=== PATIENT | male | born 1965 | race African-American/Black ===

== ENCOUNTER → 2020-10-16 | Outpatient (CLI) | payer OTHER | LOC: LAB 13:55 | PROVIDERS: ATTEND Family Medicine | DX: Z20.2 Contact with and (suspected) exposure to infections with a predominantly sexual mode of transmission (principal) | CPT/HCPCS: 86592; 86703; 86803; 87491; 87591 ==

== ENCOUNTER 2021-01-20 13:27 | Emergency (ER) | payer OTHER ==
[~2021-01-20] VITALS: Ht 180.3 cm; Wt 106.8 kg
[2021-01-20 13:50] VITALS: BP 154/90
[2021-01-20] MEDS ORDERED: ONDANSETRON ODT 4 MG TAB.RAPDIS. PO ONE (14:00)
[2021-01-20] MEDS ORDERED: predniSONE 20 MG TABLET PO ONE (14:00)
[2021-01-20] MEDS ORDERED: BENZONATATE 100 MG CAPSULE. PO ONE (14:00)
[2021-01-20] MEDS ORDERED: IPRATRPIUM/ALBUTEROL 0.5/2.5MG 3 ML NEBU. NEB ONE (14:00)
--- NOTE | 2021-01-20 14:22 | RAD ---
Single view chest dated 01/20/2021: No comparison available. Clinical Indication: Cough. Findings: Single upright portable exam of the chest was performed. Heart and mediastinal contours within normal limits. Lungs are clear. No consolidation or pleural effusion. No pneumothorax. Impression:: No acute radiographic abnormality. Electronically signed by: Wilmar Stokes MD (01/20/2021 2:20 PM) [id number]
--- NOTE | 2021-01-20 14:33 | PHYS DOC ---
Past Medical History Past Medical History: Diabetes-Type II, Hypertension Additional Past Medical Histor: pt reports he had covid in december 2019 lost 130#,does not have htn or dm now Past Surgical History: No Surgical History Smoking Status: Never Smoker Alcohol Use: Rarely General Adult EDM: Chief Complaint: COUGH HPI: HPI: Patient is a 55 year old male with previous history of diabetes type 2, hypertension, who presents the ED today complaining of productive cough for 2 days. Patient is also complaining of sinus pain with drainage, he states this has been going on for days. He states he has history of sinus infections and typically has to be on Augmentin. Patient states today he coughed so hard that he vomited. Denies any fever. Also complaining of a mild intermittent sinus headache. Review of Systems: Review of Systems: Constitutional: Denies fever or chills. [] Eyes: Denies change in visual acuity. [] HENT: Reports sinus congestion Respiratory: Reports cough, denies shortness of breath. [] Cardiovascular: Denies chest pain or edema. [] GI: Denies abdominal pain, nausea, vomiting, bloody stools or diarrhea. [] : Denies dysuria. [] Musculoskeletal: Denies back pain or joint pain. [] Integument: Denies rash. [] Neurologic: Denies headache, focal weakness or sensory changes. [] Psychiatric: Denies depression or anxiety. [] Heart Score: C/O Chest Pain: N/A Risk Factors: Risk Factors: DM, Current or recent (<one month) smoker, HTN, HLP, family history of CAD, obesity. Risk Scores: Score 0 - 3: 2.5% MACE over next 6 weeks - Discharge Home Score 4 - 6: 20.3% MACE over next 6 weeks - Admit for Clinical Observation Score 7 - 10: 72.7% MACE over next 6 weeks - Early Invasive Strategies Current Medications: Current Medications Medications (Trade) Dose Ordered Sig/Manuel Start Time Stop Time Status Last Admin Dose Admin Albuterol/ Ipratropium (Duoneb) 3 ml 1X ONCE 01/20/21 14:00 01/20/21 14:01 DC 01/20/21 14:00 3 ML Benzonatate (Tessalon Perle) 100 mg 1X ONCE 01/20/21 14:00 01/20/21 14:01 DC 01/20/21 14:08 100 MG Ondansetron HCl (Zofran Odt) 4 mg 1X ONCE 01/20/21 14:00 01/20/21 14:01 DC 01/20/21 14:08 4 MG Prednisone (Prednisone) 60 mg 1X ONCE 01/20/21 14:00 01/20/21 14:01 DC 01/20/21 14:08 60 MG Allergies: Allergies: Allergies Coded Allergies Type Severity Reaction Last Updated Verified No Known Drug Allergies 01/20/21 No Physical Exam: PE: Constitutional: Well developed, well nourished, no acute distress, non-toxic appearance. [] HENT: Normocephalic, atraumatic, bilateral external ears normal, oropharynx m oist, no oral exudates, boggy nasal turbinates bilaterally, mild bilateral maxillary sinus tenderness Eyes: PERRLA, EOMI, conjunctiva normal, no discharge. [] Neck: Normal range of motion, no tenderness, supple, no stridor. [] Cardiovascular:Heart rate regular rhythm, no murmur [] Lungs & Thorax: Bilateral breath sounds clear to auscultation [] Abdomen: Bowel sounds normal, soft, no tenderness, no masses, no pulsatile masses. [] Skin: Warm, dry, no erythema, no rash. [] Back: No tenderness, no CVA tenderness. [] Extremities: No tenderness, no cyanosis, no clubbing, ROM intact, no edema. [] Neurologic: Alert and oriented X 3, normal motor function, normal sensory function, no focal deficits noted. [] Psychologic: Affect normal, judgement normal, mood normal. [] Current Patient Data: Vital Signs: Vital Signs Date Time Temp Pulse Resp B/P (MAP) Pulse Ox O2 Delivery O2 Flow Rate FiO2 01/20/21 14:06 97 Room Air 01/20/21 13:50 99.4 114 18 154/90 (111) 99.4 EKG: EKG: [] Radiology/Procedures: Radiology/Procedures: []PROCEDURE: CHEST AP ONLY Single view chest dated 01/20/2021: No comparison available. Clinical Indication: Cough. Findings: Single upright portable exam of the chest was performed. Heart and mediastinal contours within normal limits. Lungs are clear. No consolidation or pleural effusion. No pneumothorax. Impression:: No acute radiographic abnormality. Electronically signed by: Wilmar Stokes MD (01/20/2021 2:20 PM) [id number] DICTATED and SIGNED BY: WILMAR STOKES MD DATE: 01/20/21 [id number] 0 Course & Med Decision Making: Course & Med Decision Making Pertinent Labs and Imaging studies reviewed. (See chart for details) This is a 55-year-old male patient presented to the ED today with complaints of cough for 2 days as well as sinus congestion and pain, headache, states this has been going on for a while. Chest x-ray is negative. Patient is afebrile. Discharged on Augmentin for sinusitis. Follow-up with the PCP. Félix Disclaimer: Félix Disclaimer: This electronic medical record was generated, in whole or in part, using a voice recognition dictation system. Departure Departure Impression: Primary Impression: Acute sinusitis Qualified Codes: J01.00 - Acute maxillary sinusitis, unspecified Additional Impressions: Sinus headache Cough Disposition: HOME / SELF CARE / HOMELESS Condition: STABLE Referrals: NO PCP (PCP) Follow up with your doctor in one week Patient Instructions: Cough, Adult, [id number], Sinus Headache, [id number], Sinusitis Additional Instructions: You have a sinus infection with a cough. Please take the prescribed antibiotics until completed. Follow-up with your primary care doctor in 1 week. Scripts Fluticasone Propionate (Flonase Allergy Relief) 9.9 Ml Oriental.susp 2 SPRAYS NS DAILY, #1 BOTTLE Prov: JACKIE MAGALLANES APRN 01/20/21 Promethazine HCl/Codeine (Prometh-Codein 6.25-10 mg/5 ml) 5 Ml Syrup 5 ML PO PRN Q4-6HRS PRN for cough MDD 30 Milliliter(s), #120 ML 0 Refills Prov: JACKIE MAGALLANES APRN 01/20/21 Amoxicillin/Potassium Clav (AUGMENTIN 875-125 TABLET) 1 Each Tablet 1 TAB PO BID for 10 Days, #20 TAB 0 Refills Prov: JACKIE MAGALLANES APRN 01/20/21 JACKIE MAGALLANES APRN Jan 20, 2021 14:33
[2021-01-20] MEDS ORDERED: PROM5SYR2 PO (14:40)
[2021-01-20] MEDS ORDERED: AMOX1TAB61 PO (14:40)
[2021-01-20] MEDS ORDERED: FLUT9.9S NS (14:40)
[2021-01-21] MEDS ORDERED: GUAI400T78 PO (15:46)
[2021-01-21] MEDS ORDERED: BENZ100C PO (15:46)
== END 2021-01-20 14:59 | disposition home or self-care (01) ==
LOC: ER 13:27
DX: J01.00 Acute maxillary sinusitis, unspecified (principal); R05 Cough
CPT/HCPCS: 71045; 94640; 99284; J7512

== ENCOUNTER 2021-01-21 13:01 | Emergency (ER) | payer OTHER ==
[~2021-01-21] VITALS: Ht 180.3 cm; Wt 109.1 kg
[~2021-01-21 13:01] MED LIST: AMOX1TAB61 PO; FLUT9.9S NS; PROM5SYR2 PO
[2021-01-21 15:39] VITALS: BP 131/90
[2021-01-21] MEDS ORDERED: GUAI400T78 PO (15:46)
[2021-01-21] MEDS ORDERED: BENZ100C PO (15:46)
--- NOTE | 2021-01-21 15:46 | PHYS DOC ---
Past Medical History Past Medical History: Diabetes-Type II, Hypertension Additional Past Medical Histor: pt reports he had covid in december 2019 lost 130#,does not have htn or dm now Past Surgical History: No Surgical History Smoking Status: Never Smoker Alcohol Use: Rarely General Adult EDM: Chief Complaint: MEDICATION REFILL HPI: HPI: Patient is a 55 year old male with history of diabetes type 2, hypertension, who presents today requesting a refill of codeine with guaifenesin, patient was given the prescription yesterday of 120 mL for cough, he states it is almost finished and he would like a refill. Patient was seen in the ED yesterday, had a negative chest x-ray. Denies any new symptoms. Patient works in the hospital Patient is employed at [employer] Review of Systems: Review of Systems: Constitutional: Denies fever or chills. [] Eyes: Denies change in visual acuity. [] HENT: Denies nasal congestion or sore throat. [] Respiratory: reports cough, denies shortness of breath Cardiovascular: Denies chest pain or edema. [] GI: Denies abdominal pain, nausea, vomiting, bloody stools or diarrhea. [] : Denies dysuria. [] Musculoskeletal: Denies back pain or joint pain. [] Integument: Denies rash. [] Neurologic: Denies headache, focal weakness or sensory changes. [] Psychiatric: Denies depression or anxiety. [] Heart Score: C/O Chest Pain: N/A Risk Factors: Risk Factors: DM, Current or recent (<one month) smoker, HTN, HLP, family history of CAD, obesity. Risk Scores: Score 0 - 3: 2.5% MACE over next 6 weeks - Discharge Home Score 4 - 6: 20.3% MACE over next 6 weeks - Admit for Clinical Observation Score 7 - 10: 72.7% MACE over next 6 weeks - Early Invasive Strategies Allergies: Allergies: Allergies Coded Allergies Type Severity Reaction Last Updated Verified No Known Drug Allergies 01/20/21 No Physical Exam: PE: Constitutional: Well developed, well nourished, no acute distress, non-toxic appearance. [] HENT: Normocephalic, atraumatic, bilateral external ears normal, oropharynx moist, no oral exudates, nose normal. [] Eyes: PERRLA, EOMI, conjunctiva normal, no discharge. [] Neck: Normal range of motion, no tenderness, supple, no stridor. [] Cardiovascular:Heart rate regular rhythm, no murmur [] Lungs & Thorax: Bilateral breath sounds clear to auscultation [] Abdomen: Bowel sounds normal, soft, no tenderness, no masses, no pulsatile masses. [] Skin: Warm, dry, no erythema, no rash. [] Back: No tenderness, no CVA tenderness. [] Extremities: No tenderness, no cyanosis, no clubbing, ROM intact, no edema. [] Neurologic: Alert and oriented X 3, normal motor function, normal sensory function, no focal deficits noted. [] Psychologic: Affect normal, judgement normal, mood normal. [] EKG: EKG: [] Radiology/Procedures: Radiology/Procedures: [] Course & Med Decision Making: Course & Med Decision Making Pertinent Labs and Imaging studies reviewed. (See chart for details) This is a 55-year-old male patient presenting to the ED today requesting a refill for codeine with guaifenesin for cough for 2 days. Patient was given 120 mL prescription yesterday, presents to the ED today with a bottle that is almost finished. Informed patient he will not get a refill for this medicine. He had a negative chest x-ray yesterday. Given prescription for Tessalon Perles. Félix Disclaimer: Félix Disclaimer: This electronic medical record was generated, in whole or in part, using a voice recognition dictation system. Departure Departure Impression: Primary Impression: Cough Additional Impression: Medication refill Disposition: HOME / SELF CARE / HOMELESS Condition: STABLE Referrals: NO PCP (PCP) follow up with your doctor this week Patient Instructions: Cough, Adult, [id number], Medication Refill, Emergency Department Additional Instructions: You were seen in the emergency room, we do not refill codeine with guaifenesin. Please call your primary care doctor or a doctor from the list provided for refills Scripts Guaifenesin (GUAIFENESIN) 400 Mg Tablet 1 TAB PO TID for cough for 5 Days, #15 TAB 0 Refills Prov: JACKIE MAGALLANES MEDICAL DIRECTOR/HEAD TEAM PHYSICIAN 01/21/21 Benzonatate (TESSALON PERLE) 100 Mg Capsule 1 CAP PO TID, #30 CAP Prov: MUTJACKIE BAKER APRN 01/21/21 JACKIE MAGALLANES APRN Jan 21, 2021 15:46
== END 2021-01-21 16:04 | disposition home or self-care (01) ==
LOC: ER 13:01
DX: R05 Cough (principal); E11.9 Type 2 diabetes mellitus without complications; I10 Essential (primary) hypertension
CPT/HCPCS: 99283

== ENCOUNTER 2021-03-14 11:04 | Observation (INO) | payer OTHER ==
[~2021-03-14] VITALS: Ht 180.3 cm; Wt 119.9 kg
[~2021-03-14 11:04] MED LIST changes: +BENZ100C PO; +GUAI400T78 PO
--- NOTE | 2021-03-14 13:42 | PHYS DOC ---
Past Medical History Past Medical History: Diabetes-Type II, High Cholesterol, Hypertension Additional Past Medical Histor: pt reports he had covid in december 2019 lost 130# Past Surgical History: No Surgical History Smoking Status: Never Smoker Alcohol Use: Rarely General Adult EDM: Chief Complaint: FLU SYMPTOM HPI: HPI: Patient is a 55 year old male with history of HTN, HLD, DM no longer on meds after he lost 130 pounds last year who presents with 3-4 days of generalized abdominal pain, bloating, and constipation. Has not had a bowel movement in approximately 7 days. He denies fevers, chills. No nausea/vomiting. He has had poor appetite. He complains of night sweats going back for months. He has a family history of colon cancer. His last colonoscopy was 5-10 years ago, and was clean at that time although he has a history of polyps. He has not had any history of abdominal surgeries or hernias. Has never had a bowel obstruction in the past. No dysuria, urgency, or frequency. He is feeling depressed, and has not talked to any professionals about this. He denies SI/HI. Review of Systems: Review of Systems: Constitutional: Generalized fatigue. Night sweats. Denies fever or chills. [] Eyes: Denies change in visual acuity. [] HENT: Denies nasal congestion or sore throat. [] Respiratory: Denies cough or shortness of breath. [] Cardiovascular: Denies chest pain or edema. [] GI: + Abdominal pain, bloating, constipation. [] : Denies dysuria. [] Musculoskeletal: Denies back pain or joint pain. [] Integument: Denies rash. [] Neurologic: Denies headache, focal weakness or sensory changes. [] Endocrine: Denies polyuria or polydipsia. [] Lymphatic: Denies swollen glands. [] Psychiatric: Reports depression. Denies SI/HI. [] Heart Score: C/O Chest Pain: N/A Risk Factors: Risk Factors: DM, Current or recent (<one month) smoker, HTN, HLP, family history of CAD, obesity. Risk Scores: Score 0 - 3: 2.5% MACE over next 6 weeks - Discharge Home Score 4 - 6: 20.3% MACE over next 6 weeks - Admit for Clinical Observation Score 7 - 10: 72.7% MACE over next 6 weeks - Early Invasive Strategies Family History: Family History: Family history colon cancer in father Allergies: Allergies: Allergies Coded Allergies Type Severity Reaction Last Updated Verified No Known Drug Allergies 01/20/21 No Physical Exam: PE: Constitutional: Well developed, well nourished, no acute distress, non-toxic appearance. [] HENT: Normocephalic, atraumatic, bilateral external ears normal, oropharynx moist, no oral exudates, nose normal. [] Eyes: PERRLA, EOMI, conjunctiva normal, no discharge. [] Neck: Normal range of motion, no tenderness, supple, no stridor. [] Cardiovascular:Heart rate regular rhythm, no murmur [] Lungs & Thorax: Bilateral breath sounds clear to auscultation [] Abdomen: Slightly distended abdomen, diffusely tender. Nonfocal exam. No peritoneal signs.. [] Skin: Warm, dry, no erythema, no rash. [] Back: No tenderness, no CVA tenderness. [] Extremities: No tenderness, no cyanosis, no clubbing, ROM intact, no edema. [] Neurologic: Alert and oriented X 3, normal motor function, normal sensory function, no focal deficits noted. [] Psychologic depressed mood. No SI or HI. Linear/logical thought processes exercised. [] Current Patient Data: Vital Signs: Vital Signs Date Time Temp Pulse Resp B/P (MAP) Pulse Ox O2 Delivery O2 Flow Rate FiO2 03/14/21 12:50 98.6 80 20 181/101 (104) 98 Room Air 98.6 EKG: EKG: NA [] Radiology/Procedures: Radiology/Procedures: CT abdomen/pelvis [] Impression: [facility] [address] [place] [address] IMAGING REPORT Signed PATIENT: ANGEL STRATTON LACCOUNT: [id number] : 1965 LOCATION: ER AGE: 55 SEX: M EXAM STATUS: REG ER ORD. PHYSICIAN: CHUCK KNAPP MD REASON: BLOATING, ABD PAIN, CONSTIPATION. alicia PROCEDURE: CT ABDOMEN PELVIS WO CONTRAST Exam: CT of abdomen and pelvis without contrast INDICATION: Bloating, abdominal pain, constipation TECHNIQUE: Sequential axial images through the abdomen and pelvis obtained without IV contrast. Sagittal and coronal reformatted images were reconstructed from the axial data and reviewed. Exposure: One or more of the following in the visualized dose reduction techniques were utilized for this examination: 1. Automated exposure control 2. Adjustment of the MA and/or KV according to patient size 3. Use of iterative of reconstructive technique Comparisons: None FINDINGS: Heart size is normal. No pericardial effusion. There is incompletely visualized nodular opacity. No pleural effusion. Evaluation solid organs limited secondary to noncontrast technique. Liver, spleen, pancreas, gallbladder and adrenals are unremarkable. No perinephric inflammation or hydronephrosis. No renal or ureteral calculi are identified. Bladder is partially distended and not well evaluated. Prostate is not enlarged. Few scattered diverticula noted in the sigmoid colon. Appendix is normal. No free intra-abdominal air or fluid. No obstruction. Abdominal aorta has a normal course and caliber. No enlarged intra-abdominal lymph nodes are identified. No suspicious osseous lesions or acute fractures. IMPRESSION: 1. No acute process identified within the abdomen or pelvis. 2. Diverticulosis without evidence of acute diverticulitis. 3. Partially visualized nodular opacity at the left lower lobe. This nonspecific and can be infectious or inflammatory in etiology. Dedicated imaging of the chest is recommended to better evaluate. Electronically signed by: Clint Burgess MD (03/14/2021 3:13 PM) LOC[facility]IN [facility] DICTATED and SIGNED BY: CLINT BURGESS MD DATE: 03/14/21 [id number] 0 Course & Med Decision Making: Course & Med Decision Making Pertinent Labs and Imaging studies reviewed. (See chart for details) Patient is a 55-year-old male who presents with 3-4 days of abdominal bloating and pain in the setting of 7 days of constipation. He also complains of months of night sweats and a recent 130 pound weight loss. He does have a family history of colon cancer, and a personal history of polyps without a recent colonoscopy. He has no surgical history or history of hernia, making SBO less likely. Will check a CT scan for bowel obstruction, malignant mass, or other cause of his symptoms. DDx also includes more benign condition such as constipation. Patient voiced depression but denies SI/HI. He has no resources at this time, PAT team will be consulted to discuss resources. 1341 CT did not show acute cause for his pain. Did show a lung nodule, that will be followed up with chest x-ray. Labs show an elevated creatinine 2.8. Unknown baseline. No obstructive changes on CT. Patient is unsure when the last time he may have had labs drawn. He does deny any history of chronic kidney disease. Urine does show spillage of protein and trace blood, potentially concerning for nephritic or nephrotic syndrome vs pre-renal. Fluids ordered. Feel the patient should be admitted for further management with his severe ALICIA. [id number] Félix Disclaimer: Félix Disclaimer: This electronic medical record was generated, in whole or in part, using a voice recognition dictation system. Departure Departure Impression: Primary Impression: ALICIA (acute kidney injury) Additional Impressions: Constipation Abdominal pain Disposition: ADMITTED INPATIENT Admitting Physician: SILVIA Puckett) Condition: STABLE Referrals: UNKNOWN PCP NAME (PCP) CHUCK KNAPP MD Mar 14, 2021 13:42
[2021-03-14 13:44] LABS: BASO % 1 % (0-3); BILIRUBIN,URINE NEGATIVE (NEG); CLARITY,URINE CLEAR; COLOR,URINE YELLOW; EOS # 0.1 x10^3/uL (0.0-0.7); EOS % 2 % (0-3); HEMATOCRIT 38.7 % (39.0-53.0); HEMOGLOBIN 12.3 g/dL (13.0-17.5); LYMPH % 23 % (24-48); MEAN CORPUSCULAR HEMOGLOBIN 26 pg (25-35); MEAN CORPUSCULAR HGB CONC 32 g/dL (31-37); MEAN CORPUSCULAR VOLUME 80 fL (79-100); MONO # 0.9 x10^3/uL (0.0-1.1); MONO % 21 % (0-9); NEUT # 2.4 x10^3/uL (1.8-7.7); NEUT % 54 % (31-73); NITRITE,URINE NEGATIVE (NEG); PH,URINE 5.5 (<5.0-8.0); PLATELET COUNT 185 x10^3/uL (140-400); PROTEIN,URINE >=300 mg/dL (NEG-TRACE); RED BLOOD COUNT 4.83 x10^6/uL (4.30-5.70); RED CELL DISTRIBUTION WIDTH 13.6 % (11.5-14.5); UROBILINOGEN,URINE 0.2 mg/dL (0.2 mg/dL); WHITE BLOOD COUNT 4.5 x10^3/uL (4.0-11.0)
[2021-03-14 13:51] LABS: BACTERIA,URINE 0 /HPF (0-FEW); RBC,URINE OCC /HPF (0-2)
[2021-03-14 13:52] LABS: CALCIUM 9.1 mg/dL (8.5-10.1); CREATININE 2.8 mg/dL (0.7-1.3); GFR 28.6; POTASSIUM 4.8 mmol/L (3.5-5.1)
[2021-03-14 13:57] LABS: ALBUMIN 3.4 g/dL (3.4-5.0); ALBUMIN/GLOBULIN RATIO 0.9 (1.0-1.7); TOTAL BILIRUBIN 0.2 mg/dL (0.2-1.0); TOTAL PROTEIN 7.3 g/dL (6.4-8.2)
[2021-03-14 14:46] LABS: % BANDS 3 % (0-9); % BASOS 1 % (0-3); % LYMPHS 21 % (24-48); % MONOS 14 % (0-10); % SEGS 61 % (35-66)
[2021-03-14 14:47] LABS: PLT ESTIMATE ADEQUATE (ADEQUATE)
--- NOTE | 2021-03-14 15:16 | RAD ---
Exam: CT of abdomen and pelvis without contrast INDICATION: Bloating, abdominal pain, constipation TECHNIQUE: Sequential axial images through the abdomen and pelvis obtained without IV contrast. Sagit nely and coronal reformatted images were reconstructed from the axial data and reviewed. Exposure: One or more of the following in the visualized dose reduction techniques were utilized for this examination: 1. Automated exposure control 2. Adjustment of the MA and/or KV according to patient size 3. Use of iterative of reconstructive technique Comparisons: None FINDINGS: Heart size is normal. No pericardial effusion. There is incompletely visualized nodular opacity. No p leural effusion. Evaluation solid organs limited secondary to noncontrast technique. Liver, spleen, pancreas, gallbladder and adrenals are unremarkable. No perinephric inflammation or hydronephrosis. No renal or ureteral calculi are identified. Bladder is partially distended and not well evaluated. Prostate is not enlarged. Few scattered diverticula noted in the sigmoid colon. Appendix is normal. No free intra-abdominal air or fluid. No obstruction. Abdominal aorta has a normal course and caliber. No enlarged intra-abdominal lymph nodes are identified. No suspicious osseous lesions or acute fractures. IMPRESSION: 1. No acute process identified within the abdomen or pelvis. 2. Diverticulosis without evidence of acute diverticulitis. 3. Partially visualized nodular opacity at the left lower lobe. This nonspecific and can be infectio us or inflammatory in etiology. Dedicated imaging of the chest is recommended to better evaluate. Electronically signed by: Clint Elliott MD (03/14/2021 3:13 PM) [facility]
[2021-03-14] MEDS ORDERED: IV RINGERS,LACTATED 1000ML 1,000 ML IV ONE (15:30)
--- NOTE | 2021-03-14 15:51 | RAD ---
Exam: Chest 2 views INDICATION: Nodule on chest CT TECHNIQUE: Frontal and lateral views the chest Comparisons: CT same day FINDINGS: The cardiomediastinal silhouette and pulmonary vessels are within normal limits. Lung is clear. No pleural effusion. IMPRESSION: Previously seen nodular opacities not well illustrated on chest x-ray. CT of chest is recommended to better evaluate. Electronically signed by: Clint Elliott MD (03/14/2021 3:49 PM) [facility]
--- NOTE | 2021-03-14 16:58 | PDOC1 ---
History and Physical Date of Service: DOS: DATE: 03/14/21 TIME: 16:58 Chief Complaint: Chief Complain: ABD pain History of Present Illness: HPI: 55 year old male with history of HTN, HLD, DM no longer on meds after he lost 130 pounds last year who presents with 3-4 days of generalized abdominal pain, bloating, and constipation. Has not had a bowel movement in approximately 7 days. He denies fevers, chills. No nausea/vomiting. He has had poor appetite. He complains of night sweats going back for months. He has a family history of colon cancer. His last colonoscopy was 5-10 years ago, and was clean at that time although he has a history of polyps. He has not had any history of abdominal surgeries or hernias. Has never had a bowel obstruction in the past. No dysuria, urgency, or frequency. Pt also states he has had a lot of stress at work that is preventing him from having an adequate BM. Past Medical/Surgical History: PMH/PSH: Past Medical History: Diabetes-Type II, High Cholesterol, Hypertension, covid in december 2019 and lost 130 lbs Past Surgical History: No Surgical History Allergies: Allergies: Coded Allergies: No Known Drug Allergies (Unverified , 01/20/21) Family History: Family History: Reviewed with no relevant findings Social History: Social History: Smoking Status: Never Smoker Alcohol Use: Rarely Current Medications: Current Medications Current Medications Ringer's Solution 1,000 ml @ 75 mls/hr 1X ONCE IV Last administered on 03/14/21at 16:20; Start 03/14/21 at 15:30; Stop 03/15/21 at 04:49 Active Scripts Active Guaifenesin 400 Mg Tablet 1 Tab PO TID 5 Days Tessalon Perle (Benzonatate) 100 Mg Capsule 1 Cap PO TID Flonase Allergy Relief (Fluticasone Propionate) 9.9 Ml [place].susp 2 Sprays NS DAILY Prometh-Codein 6.25-10 mg/5 ml (Promethazine HCl/Codeine) 5 Ml Syrup 5 Ml PO PRN Q4-6HRS PRN MDD 30 Milliliter(s) Augmentin 875-125 Tablet (Amoxicillin/Potassium Clav) 1 Each Tablet 1 Tab PO BID 10 Days ROS: Review of Systems Review of System REVIEW OF SYSTEMS: GENERAL: Denies weakness SKIN: No bruising, hair changes or rashes. EYES: No blurred, double or loss of vision. NOSE AND THROAT: No history of nosebleeds, hoarseness or sore throat. HEART: No history of palpitations, chest pain or shortness of breath on exertion. LUNGS: Denies cough, hemoptysis, wheezing or shortness of breath. GASTROINTESTINAL: Denies changes in appetite, nausea, vomiting, diarrhea or constipation. GENITOURINARY: No history of frequency, urgency, hesitancy or nocturia. NEUROLOGIC: Denies history of numbness, tingling, or tremor. PSYCHIATRIC: No history of panic, anxiety or depression. ENDOCRINE: No history of heat or cold intolerance, polyuria or polydipsia. EXTREMITIES: Denies joint pain, pain on walking or stiffness. Physical Exam: Vital Signs: Vital Signs Date Time Temp Pulse Resp B/P (MAP) Pulse Ox O2 Delivery O2 Flow Rate FiO2 03/14/21 12:50 98.6 80 20 181/101 (104) 98 Room Air 98.6 Physcial Exam: GEN: No apparent distress. Alert and oriented HEENT: Normal cephalic, atraumatic, external auditory canals are patent EYES: Extraocular muscles are intact, pupil are equally round and reactive to light and accommodation MUSCULOSKELETAL: Well developed , well nourished, good range of motion ENDOCRINE: No thyromegaly was palpated LYMPHATICS: No cervical chain or axillary nodes were noted HEMATOPOIETIC: No bruising NECK: Supple, no JVD, no thyromegaly was noted LUNGS: Clear to auscultation in all lung lema without rhonchi or wheezing HEART: RRR, S!, S2 present. Peripheral pulses intact, no obvious murmurs noted ABDOMEN: Soft, nontender. Positive bowel sounds, no organomegaly, normal bowel sounds EXTREMITIES: Without clubbing, cyanosis, or edema. Pedal pulses intact. Negative Homans sign NEUROLOGIC: Normal speech and tone. A&O x 3, moves all extremities, no obvious focal deficits PSYCHIATRIC: Normal affect, normal mood. Stable SKIN: No ulcerations or rashes, good skin turgor, no jaundice VASCULAR: Good capillary refill, neurovascular bundle appears to be intact Labs: Labs: Laboratory Tests Test 03/14/21 13:25 White Blood Count 4.5 x10^3/uL (4.0-11.0) Red Blood Count 4.83 x10^6/uL (4.30-5.70) Hemoglobin 12.3 g/dL (13.0-17.5) Hematocrit 38.7 % (39.0-53.0) Mean Corpuscular Volume 80 fL (79-100) Mean Corpuscular Hemoglobin 26 pg (25-35) Mean Corpuscular Hemoglobin Concent 32 g/dL (31-37) Red Cell Distribution Width 13.6 % (11.5-14.5) Platelet Count 185 x10^3/uL (140-400) Neutrophils (%) (Auto) 54 % (31-73) Lymphocytes (%) (Auto) 23 % (24-48) Monocytes (%) (Auto) 21 % (0-9) Eosinophils (%) (Auto) 2 % (0-3) Basophils (%) (Auto) 1 % (0-3) Neutrophils # (Auto) 2.4 x10^3/uL (1.8-7.7) Lymphocytes # (Auto) 1.0 x10^3/uL (1.0-4.8) Monocytes # (Auto) 0.9 x10^3/uL (0.0-1.1) Eosinophils # (Auto) 0.1 x10^3/uL (0.0-0.7) Basophils # (Auto) 0.0 x10^3/uL (0.0-0.2) Segmented Neutrophils % 61 % (35-66) Band Neutrophils % 3 % (0-9) Lymphocytes % 21 % (24-48) Monocytes % 14 % (0-10) Basophils % 1 % (0-3) Platelet Estimate Adequate (ADEQUATE) Urine Collection Type Unknown Urine Color Yellow Urine Clarity Clear Urine pH 5.5 (<5.0-8.0) Urine Specific [place] 1.015 (1.000-1.030) Urine Protein >=300 mg/dL (NEG-TRACE) Urine Glucose (UA) Negative mg/dL (NEG) Urine Ketones (Stick) Negative mg/dL (NEG) Urine Blood Trace (NEG) Urine Nitrite Negative (NEG) Urine Bilirubin Negative (NEG) Urine Urobilinogen Dipstick 0.2 mg/dL (0.2 mg/dL) Urine Leukocyte Esterase Negative (NEG) Urine RBC Occ /HPF (0-2) Urine WBC 1-4 /HPF (0-4) Urine Bacteria 0 /HPF (0-FEW) Urine Mucus Slight /LPF Sodium Level 138 mmol/L (136-145) Potassium Level 4.8 mmol/L (3.5-5.1) Chloride Level 103 mmol/L (98-107) Carbon Dioxide Level 27 mmol/L (21-32) Anion Gap 8 (6-14) Blood Urea Nitrogen 25 mg/dL (8-26) Creatinine 2.8 mg/dL (0.7-1.3) Estimated GFR (Cockcroft-Gault) 28.6 BUN/Creatinine Ratio 9 (6-20) Glucose Level 105 mg/dL (70-99) Calcium Level 9.1 mg/dL (8.5-10.1) Total Bilirubin 0.2 mg/dL (0.2-1.0) Aspartate Amino Transf (AST/SGOT) 32 U/L (15-37) Alanine Aminotransferase (ALT/SGPT) 43 U/L (16-63) Alkaline Phosphatase 63 U/L (46-116) Total Protein 7.3 g/dL (6.4-8.2) Albumin 3.4 g/dL (3.4-5.0) Albumin/Globulin Ratio 0.9 (1.0-1.7) Lipase 143 U/L (73-393) Laboratory Tests Test 03/14/21 13:25 White Blood Count 4.5 x10^3/uL (4.0-11.0) Red Blood Count 4.83 x10^6/uL (4.30-5.70) Hemoglobin 12.3 g/dL (13.0-17.5) Hematocrit 38.7 % (39.0-53.0) Mean Corpuscular Volume 80 fL (79-100) Mean Corpuscular Hemoglobin 26 pg (25-35) Mean Corpuscular Hemoglobin Concent 32 g/dL (31-37) Red Cell Distribution Width 13.6 % (11.5-14.5) Platelet Count 185 x10^3/uL (140-400) Neutrophils (%) (Auto) 54 % (31-73) Lymphocytes (%) (Auto) 23 % (24-48) Monocytes (%) (Auto) 21 % (0-9) Eosinophils (%) (Auto) 2 % (0-3) Basophils (%) (Auto) 1 % (0-3) Neutrophils # (Auto) 2.4 x10^3/uL (1.8-7.7) Lymphocytes # (Auto) 1.0 x10^3/uL (1.0-4.8) Monocytes # (Auto) 0.9 x10^3/uL (0.0-1.1) Eosinophils # (Auto) 0.1 x10^3/uL (0.0-0.7) Basophils # (Auto) 0.0 x10^3/uL (0.0-0.2) Segmented Neutrophils % 61 % (35-66) Band Neutrophils % 3 % (0-9) Lymphocytes % 21 % (24-48) Monocytes % 14 % (0-10) Basophils % 1 % (0-3) Platelet Estimate Adequate (ADEQUATE) Urine Collection Type Unknown Urine Color Yellow Urine Clarity Clear Urine pH 5.5 (<5.0-8.0) Urine Specific [place] 1.015 (1.000-1.030) Urine Protein >=300 mg/dL (NEG-TRACE) Urine Glucose (UA) Negative mg/dL (NEG) Urine Ketones (Stick) Negative mg/dL (NEG) Urine Blood Trace (NEG) Urine Nitrite Negative (NEG) Urine Bilirubin Negative (NEG) Urine Urobilinogen Dipstick 0.2 mg/dL (0.2 mg/dL) Urine Leukocyte Esterase Negative (NEG) Urine RBC Occ /HPF (0-2) Urine WBC 1-4 /HPF (0-4) Urine Bacteria 0 /HPF (0-FEW) Urine Mucus Slight /LPF Sodium Level 138 mmol/L (136-145) Potassium Level 4.8 mmol/L (3.5-5.1) Chloride Level 103 mmol/L (98-107) Carbon Dioxide Level 27 mmol/L (21-32) Anion Gap 8 (6-14) Blood Urea Nitrogen 25 mg/dL (8-26) Creatinine 2.8 mg/dL (0.7-1.3) Estimated GFR (Cockcroft-Gault) 28.6 BUN/Creatinine Ratio 9 (6-20) Glucose Level 105 mg/dL (70-99) Calcium Level 9.1 mg/dL (8.5-10.1) Total Bilirubin 0.2 mg/dL (0.2-1.0) Aspartate Amino Transf (AST/SGOT) 32 U/L (15-37) Alanine Aminotransferase (ALT/SGPT) 43 U/L (16-63) Alkaline Phosphatase 63 U/L (46-116) Total Protein 7.3 g/dL (6.4-8.2) Albumin 3.4 g/dL (3.4-5.0) Albumin/Globulin Ratio 0.9 (1.0-1.7) Lipase 143 U/L (73-393) Images: Images PROCEDURE: CHEST PA & LATERAL IMPRESSION: Previously seen nodular opacities not well illustrated on chest x-ray. CT of chest is recommended to better evaluate. ROCEDURE: CT ABDOMEN PELVIS WO CONTRAST Exam: CT of abdomen and pelvis without contrast INDICATION: Bloating, abdominal pain, constipation TECHNIQUE: Sequential axial images through the abdomen and pelvis obtained without IV contrast. Sagittal and coronal reformatted images were reconstructed from the axial data and reviewed. Exposure: One or more of the following in the visualized dose reduction techniques were utilized for this examination: 1. Automated exposure control 2. Adjustment of the MA and/or KV according to patient size 3. Use of iterative of reconstructive technique Comparisons: None FINDINGS: Heart size is normal. No pericardial effusion. There is incompletely visualized nodular opacity. No pleural effusion. Evaluation solid organs limited secondary to noncontrast technique. Liver, spleen, pancreas, gallbladder and adrenals are unremarkable. No perinephric inflammation or hydronephrosis. No renal or ureteral calculi are identified. Bladder is partially distended and not well evaluated. Prostate is not enlarged. Few scattered diverticula noted in the sigmoid colon. Appendix is normal. No free intra-abdominal air or fluid. No obstruction. Abdominal aorta has a normal course and caliber. No enlarged intra-abdominal lymph nodes are identified. No suspicious osseous lesions or acute fractures. IMPRESSION: 1. No acute process identified within the abdomen or pelvis. 2. Diverticulosis without evidence of acute diverticulitis. 3. Partially visualized nodular opacity at the left lower lobe. This nonspecific and can be infectious or inflammatory in etiology. Dedicated imaging of the chest is recommended to better evaluate. Assessment/Plan Assessment/Plan Acute abdominal pain due to constipation ALICIA due to vasomotor nephropathy History of anxiety History of diabetes mellitus type 2 not on any medication at this time Intentional weight loss Past history of Covid infection Admit to medicine for further management Continue IV fluids Bowel regimen - GI cocktail and mag citrate SCD for DVT prophylaxis Protonix GI prophylaxis ADA diet Full code Discussed with RN and SW Disposition inpatient management as above Surrogate decision maker Ranjana Katz Justifications for Admission Other Justification PATY CARDENAS MD Mar 14, 2021 16:58
[2021-03-14] MEDS ORDERED: DOCUSATE SODIUM 100 MG CAPSULE. PO PRN (17:00)
[2021-03-14] MEDS ORDERED: SENNOSIDES 8.6 MG TABLET PO PRN (17:00)
[2021-03-14] MEDS ORDERED: DEXTROSE 50% 25 GM / 50ML DISP.SYRIN. IV PRN (17:00)
[2021-03-14] MEDS: INSULIN LISPRO 300 UNITS/3 ML VIAL. SQ SCH (17:00)
[2021-03-14] MEDS ORDERED: PROCHLORPERAZINE 10 MG/2 ML VIAL. IV PRN (17:00)
[2021-03-14] MEDS ORDERED: ONDANSETRON PF 4 MG/2 ML VIAL. IVP PRN (17:00)
[2021-03-14] MEDS ORDERED: LABETALOL 20 MG/4 ML DISP.SYRIN. IVP PRN (17:15)
[2021-03-14] MEDS: IV NORMAL SALINE 1000ML BAG 1,000 ML IV SCH (19:28)
[2021-03-14] MEDS ORDERED: CITA40TA12 PO (19:39)
[2021-03-14] MEDS ORDERED: TRAZ-123 PO (19:39)
[2021-03-14 20:30] VITALS: BP 154/88
[2021-03-14] MEDS ORDERED: LORazepam 0.5 MG TABLET PO PRN (20:45)
[2021-03-14] MEDS ORDERED: traZODone 100 MG TABLET. PO SCH (21:00)
[2021-03-14] MEDS: ACETAMINOPHEN 325 MG TABLET. PO PRN (21:20)
[2021-03-14] MEDS: CITALOPRAM 20 MG TABLET. PO SCH (21:21)
[2021-03-14] MEDS ORDERED: LIDO:MAALOX 1:1 20 ML SINGLE DOSE. PO PRN (22:00)
[2021-03-14] MEDS ORDERED: MAGNESIUM CITRATE 296 ML SOLUTION. PO ONE (22:30)
[2021-03-14 23:00] VITALS: BP 140/81
[2021-03-15 03:00] VITALS: BP 147/91
--- NOTE | 2021-03-15 03:33 | NUR ---
At around 3am, pt called requesting for towels/gown. Pt had a BM. He still had his pants on and realized he didn't have his wallet. javy Will RN and toxicology supervisor informed. Security also notified and checked in ED. No wallet was found. Security talked to pt.
[2021-03-15 05:56] LABS: BASO % 1 % (0-3); EOS # 0.1 x10^3/uL (0.0-0.7); EOS % 3 % (0-3); HEMATOCRIT 36.3 % (39.0-53.0); HEMOGLOBIN 11.6 g/dL (13.0-17.5); LYMPH # 0.9 x10^3/uL (1.0-4.8); LYMPH % 26 % (24-48); MEAN CORPUSCULAR HEMOGLOBIN 26 pg (25-35); MEAN CORPUSCULAR HGB CONC 32 g/dL (31-37); MEAN CORPUSCULAR VOLUME 81 fL (79-100); MONO # 0.8 x10^3/uL (0.0-1.1); MONO % 22 % (0-9); NEUT # 1.6 x10^3/uL (1.8-7.7); NEUT % 48 % (31-73); PLATELET COUNT 186 x10^3/uL (140-400); RED BLOOD COUNT 4.47 x10^6/uL (4.30-5.70); RED CELL DISTRIBUTION WIDTH 13.9 % (11.5-14.5); WHITE BLOOD COUNT 3.5 x10^3/uL (4.0-11.0)
[2021-03-15] MEDS: IV NORMAL SALINE 1000ML BAG 1,000 ML IV SCH (06:12)
[2021-03-15 06:26] LABS: CALCIUM 8.4 mg/dL (8.5-10.1); CREATININE 2.7 mg/dL (0.7-1.3); GFR 29.8; MAGNESIUM 2.1 mg/dL (1.8-2.4); PHOSPHORUS 3.6 mg/dL (2.6-4.7); POTASSIUM 4.2 mmol/L (3.5-5.1)
[2021-03-15 07:00] VITALS: BP 141/90
[2021-03-15] MEDS: INSULIN LISPRO 300 UNITS/3 ML VIAL. SQ SCH ×2 (08:00→12:00)
[2021-03-15] MEDS: CITALOPRAM 20 MG TABLET. PO SCH (08:13)
[2021-03-15] MEDS: ACETAMINOPHEN 325 MG TABLET. PO PRN (08:14)
--- NOTE | 2021-03-15 10:08 | NUR ---
SW following. Discussed with RN, pt from home, room air, renal diet. RN advised no SW needs at this time. SW will continue to follow.
[2021-03-15 11:00] VITALS: BP 123/67
[2021-03-15] MEDS ORDERED: POLYETHYLENE GLYCOL 3350 17 GM PACKET. PO SCH (11:00)
[2021-03-15] MEDS ORDERED: DOCU-148 PO (11:40)
[2021-03-15] MEDS ORDERED: POLY17PO52 PO (11:40)
--- NOTE | 2021-03-15 11:45 | PDOC3 ---
Discharge Summary Visit Information Date of Admission: Mar 14, 2021 Date of Discharge: Mar 15, 2021 Admitting Diagnosis: constipation, Final Diagnosis Acute abdominal pain due to constipation, no prior regimen, obstipated on admit CKD 3-4 , History of anxiety disorder on celexa History of diabetes mellitus type 2 not on any medication at this time Intentional weight loss, prior history of DM2, HTN, still oBese, BMI 37 Past history of Covid infection, he was on dialysis then, was in hospital for 3 months sick with COVID, at [facility] Problems Medical Problems: (1) Abdominal pain Status: Acute (2) ALICIA (acute kidney injury) Status: Acute (3) Constipation Status: Acute Brief Hospital Course Allergies Allergies Coded Allergies Type Severity Reaction Last Updated Verified No Known Drug Allergies 01/20/21 No Vital Signs Vital Signs Date Time Temp Pulse Resp B/P (MAP) Pulse Ox O2 Delivery O2 Flow Rate FiO2 03/15/21 08:00 Room Air 03/15/21 07:00 98.0 80 18 141/90 (107) 95 98.0 Lab Results Laboratory Tests Test 03/14/21 13:25 03/14/21 22:15 03/15/21 03:25 03/15/21 08:51 White Blood Count 4.5 x10^3/uL (4.0-11.0) 3.5 x10^3/uL (4.0-11.0) Red Blood Count 4.83 x10^6/uL (4.30-5.70) 4.47 x10^6/uL (4.30-5.70) Hemoglobin 12.3 g/dL (13.0-17.5) 11.6 g/dL (13.0-17.5) Hematocrit 38.7 % (39.0-53.0) 36.3 % (39.0-53.0) Mean Corpuscular Volume 80 fL (79-100) 81 fL (79-100) Mean Corpuscular Hemoglobin 26 pg (25-35) 26 pg (25-35) Mean Corpuscular Hemoglobin Concent 32 g/dL (31-37) 32 g/dL (31-37) Red Cell Distribution Width 13.6 % (11.5-14.5) 13.9 % (11.5-14.5) Platelet Count 185 x10^3/uL (140-400) 186 x10^3/uL (140-400) Neutrophils (%) (Auto) 54 % (31-73) 48 % (31-73) Lymphocytes (%) (Auto) 23 % (24-48) 26 % (24-48) Monocytes (%) (Auto) 21 % (0-9) 22 % (0-9) Eosinophils (%) (Auto) 2 % (0-3) 3 % (0-3) Basophils (%) (Auto) 1 % (0-3) 1 % (0-3) Neutrophils # (Auto) 2.4 x10^3/uL (1.8-7.7) 1.6 x10^3/uL (1.8-7.7) Lymphocytes # (Auto) 1.0 x10^3/uL (1.0-4.8) 0.9 x10^3/uL (1.0-4.8) Monocytes # (Auto) 0.9 x10^3/uL (0.0-1.1) 0.8 x10^3/uL (0.0-1.1) Eosinophils # (Auto) 0.1 x10^3/uL (0.0-0.7) 0.1 x10^3/uL (0.0-0.7) Basophils # (Auto) 0.0 x10^3/uL (0.0-0.2) 0.0 x10^3/uL (0.0-0.2) Segmented Neutrophils % 61 % (35-66) Band Neutrophils % 3 % (0-9) Lymphocytes % 21 % (24-48) Monocytes % 14 % (0-10) Basophils % 1 % (0-3) Platelet Estimate Adequate (ADEQUATE) Urine Collection Type Unknown Urine Color Yellow Urine Clarity Clear Urine pH 5.5 (<5.0-8.0) Urine Specific [place] 1.015 (1.000-1.030) Urine Protein >=300 mg/dL (NEG-TRACE) Urine Glucose (UA) Negative mg/dL (NEG) Urine Ketones (Stick) Negative mg/dL (NEG) Urine Blood Trace (NEG) Urine Nitrite Negative (NEG) Urine Bilirubin Negative (NEG) Urine Urobilinogen Dipstick 0.2 mg/dL (0.2 mg/dL) Urine Leukocyte Esterase Negative (NEG) Urine RBC Occ /HPF (0-2) Urine WBC 1-4 /HPF (0-4) Urine Bacteria 0 /HPF (0-FEW) Urine Mucus Slight /LPF Sodium Level 138 mmol/L (136-145) 138 mmol/L (136-145) Potassium Level 4.8 mmol/L (3.5-5.1) 4.2 mmol/L (3.5-5.1) Chloride Level 103 mmol/L (98-107) 103 mmol/L (98-107) Carbon Dioxide Level 27 mmol/L (21-32) 25 mmol/L (21-32) Anion Gap 8 (6-14) 10 (6-14) Blood Urea Nitrogen 25 mg/dL (8-26) 25 mg/dL (8-26) Creatinine 2.8 mg/dL (0.7-1.3) 2.7 mg/dL (0.7-1.3) Estimated GFR (Cockcroft-Gault) 28.6 29.8 BUN/Creatinine Ratio 9 (6-20) Glucose Level 105 mg/dL (70-99) 168 mg/dL (70-99) Calcium Level 9.1 mg/dL (8.5-10.1) 8.4 mg/dL (8.5-10.1) Total Bilirubin 0.2 mg/dL (0.2-1.0) Aspartate Amino Transf (AST/SGOT) 32 U/L (15-37) Alanine Aminotransferase (ALT/SGPT) 43 U/L (16-63) Alkaline Phosphatase 63 U/L (46-116) Total Protein 7.3 g/dL (6.4-8.2) Albumin 3.4 g/dL (3.4-5.0) Albumin/Globulin Ratio 0.9 (1.0-1.7) Lipase 143 U/L (73-393) Glucose (Fingerstick) 125 mg/dL (70-99) 127 mg/dL (70-99) Phosphorus Level 3.6 mg/dL (2.6-4.7) Magnesium Level 2.1 mg/dL (1.8-2.4) Laboratory Tests Test 03/14/21 13:25 03/14/21 22:15 03/15/21 03:25 03/15/21 08:51 White Blood Count 4.5 x10^3/uL (4.0-11.0) 3.5 x10^3/uL (4.0-11.0) Red Blood Count 4.83 x10^6/uL (4.30-5.70) 4.47 x10^6/uL (4.30-5.70) Hemoglobin 12.3 g/dL (13.0-17.5) 11.6 g/dL (13.0-17.5) Hematocrit 38.7 % (39.0-53.0) 36.3 % (39.0-53.0) Mean Corpuscular Volume 80 fL (79-100) 81 fL (79-100) Mean Corpuscular Hemoglobin 26 pg (25-35) 26 pg (25-35) Mean Corpuscular Hemoglobin Concent 32 g/dL (31-37) 32 g/dL (31-37) Red Cell Distribution Width 13.6 % (11.5-14.5) 13.9 % (11.5-14.5) Platelet Count 185 x10^3/uL (140-400) 186 x10^3/uL (140-400) Neutrophils (%) (Auto) 54 % (31-73) 48 % (31-73) Lymphocytes (%) (Auto) 23 % (24-48) 26 % (24-48) Monocytes (%) (Auto) 21 % (0-9) 22 % (0-9) Eosinophils (%) (Auto) 2 % (0-3) 3 % (0-3) Basophils (%) (Auto) 1 % (0-3) 1 % (0-3) Neutrophils # (Auto) 2.4 x10^3/uL (1.8-7.7) 1.6 x10^3/uL (1.8-7.7) Lymphocytes # (Auto) 1.0 x10^3/uL (1.0-4.8) 0.9 x10^3/uL (1.0-4.8) Monocytes # (Auto) 0.9 x10^3/uL (0.0-1.1) 0.8 x10^3/uL (0.0-1.1) Eosinophils # (Auto) 0.1 x10^3/uL (0.0-0.7) 0.1 x10^3/uL (0.0-0.7) Basophils # (Auto) 0.0 x10^3/uL (0.0-0.2) 0.0 x10^3/uL (0.0-0.2) Segmented Neutrophils % 61 % (35-66) Band Neutrophils % 3 % (0-9) Lymphocytes % 21 % (24-48) Monocytes % 14 % (0-10) Basophils % 1 % (0-3) Platelet Estimate Adequate (ADEQUATE) Urine Collection Type Unknown Urine Color Yellow Urine Clarity Clear Urine pH 5.5 (<5.0-8.0) Urine Specific [place] 1.015 (1.000-1.030) Urine Protein >=300 mg/dL (NEG-TRACE) Urine Glucose (UA) Negative mg/dL (NEG) Urine Ketones (Stick) Negative mg/dL (NEG) Urine Blood Trace (NEG) Urine Nitrite Negative (NEG) Urine Bilirubin Negative (NEG) Urine Urobilinogen Dipstick 0.2 mg/dL (0.2 mg/dL) Urine Leukocyte Esterase Negative (NEG) Urine RBC Occ /HPF (0-2) Urine WBC 1-4 /HPF (0-4) Urine Bacteria 0 /HPF (0-FEW) Urine Mucus Slight /LPF Sodium Level 138 mmol/L (136-145) 138 mmol/L (136-145) Potassium Level 4.8 mmol/L (3.5-5.1) 4.2 mmol/L (3.5-5.1) Chloride Level 103 mmol/L (98-107) 103 mmol/L (98-107) Carbon Dioxide Level 27 mmol/L (21-32) 25 mmol/L (21-32) Anion Gap 8 (6-14) 10 (6-14) Blood Urea Nitrogen 25 mg/dL (8-26) 25 mg/dL (8-26) Creatinine 2.8 mg/dL (0.7-1.3) 2.7 mg/dL (0.7-1.3) Estimated GFR (Cockcroft-Gault) 28.6 29.8 BUN/Creatinine Ratio 9 (6-20) Glucose Level 105 mg/dL (70-99) 168 mg/dL (70-99) Calcium Level 9.1 mg/dL (8.5-10.1) 8.4 mg/dL (8.5-10.1) Total Bilirubin 0.2 mg/dL (0.2-1.0) Aspartate Amino Transf (AST/SGOT) 32 U/L (15-37) Alanine Aminotransferase (ALT/SGPT) 43 U/L (16-63) Alkaline Phosphatase 63 U/L (46-116) Total Protein 7.3 g/dL (6.4-8.2) Albumin 3.4 g/dL (3.4-5.0) Albumin/Globulin Ratio 0.9 (1.0-1.7) Lipase 143 U/L (73-393) Glucose (Fingerstick) 125 mg/dL (70-99) 127 mg/dL (70-99) Phosphorus Level 3.6 mg/dL (2.6-4.7) Magnesium Level 2.1 mg/dL (1.8-2.4) Brief Hospital Course Mr. Stone is a 55 old male, admit with abd pain, constipation, obsti pation, CKD 4, thought to be acute renal failure, but review of prior history, priro dialysis needed while COVID patient he reports a lot of recent job stress that exacerbated his pain and he believes caused his inability to stool, somewhat better this AM, long discussion about managing job stress, he has a lot going on with that right now. Discharge Information Condition at Discharge: Improved Follow Up: Weeks Disposition/Orders: D/C to Home Scheduled Citalopram Hydrobromide (Celexa) 40 Mg Tablet, 1 TAB PO DAILY for anxiety/depression, #30 Ref 1 (Reported) Entered as Reported by: KIMBERLY SANDOVAL on 03/14/211938 Last Action: Converted on 03/14/212044 by KIMBERLY SANDOVAL Docusate Sodium (Dok) 100 Mg Capsule, 100 MG PO DAILY for prevent constipation, #100 Prescribed by: MIRNA SCHMITT on 03/15/21 1140 Trazodone Hcl (Trazodone Hcl) 100 Mg Tablet, 1 TAB PO QHS for sleep, #30 Ref 1 (Reported) Entered as Reported by: KIMBERLY SANDOVAL on 03/14/211938 Last Action: Continued on 03/14/212044 by KIMBERLY SANDOVAL Scheduled PRN Polyethylene Glycol 3350 (Polyethylene Glycol 3350) 17 Gm Powd.pack, 17 GM PO TID PRN for CONSTIPATION, #100 Prescribed by: MIRNA SCHMITT on 03/15/21 1140 Patient Instructions Patient Instructions consult RENAL, Dr. Fletcher, if OK to DC and follow labs as outpatient pt reports he has seen Dr. Lunsford before, I did not realize this until after talking to patient for almost 30 minutes > > 40 min face to face, in room Justicifation of Admission Dx: Justifications for Admission: Justification of Admission Dx: No (obs) MIRNA SCHMITT MD Mar 15, 2021 11:45
--- NOTE | 2021-03-15 12:52 | NUR ---
The patient wanted to go home, discussed the referral to nephrology prior to discharge. However, patient stated that he would not wait for the doctor. He was educated regarding maintaining adequate hydration and to follow up with Dr. Lunsford (his PCP) or his regional sales manager to recheck his kidney function and for continuity of care. Patient verbalized understanding.
--- NOTE | 2021-03-15 13:59 | NUR ---
Discharge Note: ANGEL STRATTON Discharge instructions and discharge home medications reviewed with the patient and a copy given. All questions have been answered and understanding verbalized. The following instructions and handouts were given: Take home meds as directed. Adequate hydration. Refused to wait for nephrology referral Follow up with Dr. Lunsford in a week. Discontinued lines and drains: peripheral IV intact, patient tolerated removal, no complications noted Patient discharged to home with self care accompanied by the patient's at 1300.
--- NOTE | 2021-03-28 12:08 | NUR ---
Late Entry - NaCl infusion started on 03/14/21 at 1928 stopped on 03/15/21 at 0528. NaCl infusion started on 03/15/21 at 0612 stopped on 03/15/21 at 1234.
== END 2021-03-15 13:00 | disposition home or self-care (01) ==
LOC: ER 11:04 → ED HOLD 15:57 → 6 SOUTH 19:13
PROVIDERS: ADMIT Internal Medicine; ATTEND Internal Medicine
DX: K59.00 Constipation, unspecified (principal); I10 Essential (primary) hypertension; E78.5 Hyperlipidemia, unspecified; E78.00 Pure hypercholesterolemia, unspecified; K57.30 Diverticulosis of large intestine without perforation or abscess without bleeding; F41.9 Anxiety disorder, unspecified; E11.22 Type 2 diabetes mellitus with diabetic chronic kidney disease; I12.9 Hypertensive chronic kidney disease with stage 1 through stage 4 chronic kidney disease, or unspecified chronic kidney disease; N18.4 Chronic kidney disease, stage 4 (severe); N17.0 Acute kidney failure with tubular necrosis; Z86.16 Personal history of COVID-19; Z80.0 Family history of malignant neoplasm of digestive organs; Z87.19 Personal history of other diseases of the digestive system
CPT/HCPCS: 36415; 71046; 74176; 80048; 80053; 81001; 82962; 83690; 83735; 84100; 85007; 85025; 96360; 96361; 99285; G0378; J1815; J7030; J7120; G0379